=== PATIENT | female | born 1985 | race Caucasian/White ===

== ENCOUNTER 2022-01-17 08:54 | Inpatient (IN) | payer OTHER ==
[2022-01-17] MEDS ORDERED: SODIUM CHLORIDE 0.9% 500 ML INFUS.BAG IV ONE (09:43)
[2022-01-17] MEDS ORDERED: FAMOTIDINE 20 MG/50 ML IVPB 20 MG/50 ML MG IVPB ONE ×2 (09:50→10:26)
[2022-01-17] MEDS ORDERED: ACETAMINOPHEN 1000 MG/100 ML BAG IVPB ONE (09:50)
[2022-01-17] MEDS ORDERED: MAG HYDROX/AL HYDROX/SIMETH -MYLANTA- ORAL SUSPENSION PO ONE (09:50)
[2022-01-17] MEDS ORDERED: KETOROLAC TROMETHAMINE 15 MG/ML VIAL IVPUSH ONE (10:03)
[2022-01-17] MEDS ORDERED: KETOROLAC TROMETHAMINE 15 MG/ML VIAL ONE (10:25)
[2022-01-17] MEDS ORDERED: MAG HYDROX/AL HYDROX/SIMETH 30 ML UNIT-DOSE CUP ONE (10:25)
[2022-01-17 10:52] LABS: HEMATOCRIT 40.8 % (32.4-45.2); HEMOGLOBIN 13.3 GM/dL (10.7-15.3); MCH 28.6 pg (25.7-33.7); MCHC 32.7 g/dl (32.0-36.0); MEAN CELL VOLUME 87.5 fl (80-96); MEAN PLT VOLUME 7.5 fl (7.5-11.1); PLATELET COUNT 111 10^3/uL (134-434); RBC 4.67 M/mm3 (3.60-5.2); RDW 14.1 % (11.6-15.6)
[2022-01-17 11:04] LABS: INR 1.03 (0.83-1.09); PROTHROMBIN TIME (PATIENT) 11.8 SEC (9.7-13.0)
[2022-01-17 11:07] LABS: ACTIVATED PTT 25.3 SECONDS (25.2-36.5)
[2022-01-17 11:15] LABS: CHLORIDE 91 mmol/L (98-107); SODIUM 134 mmol/L (136-145)
[2022-01-17 11:17] LABS: CALCIUM 9.8 mg/dL (8.5-10.1)
[2022-01-17 11:18] LABS: ALBUMIN 4.9 g/dl (3.4-5.0); ANION GAP 26 MMOL/L (8-16); BLOOD UREA NITROGEN 8.9 mg/dL (7-18); CO2 17 mmol/L (21-32); GLUCOSE,RANDOM 154 mg/dL (74-106); MAGNESIUM 1.7 mg/dL (1.8-2.4)
[2022-01-17 11:21] LABS: CREATININE 0.9 mg/dL (0.55-1.3); SGOT/AST 165 U/L (15-37); SGPT/ALT 119 U/L (13-61)
[2022-01-17 11:22] LABS: TOT PROT 9.2 g/dl (6.4-8.2)
[2022-01-17 11:24] LABS: ALK PHOS 188 U/L (45-117)
[2022-01-17] MEDS ORDERED: MAGNESIUM OXIDE 400 MG TABLET (FP) PO ONE (11:34)
[2022-01-17] MEDS ORDERED: LACTATED RINGERS SOLUTION 1000 ML INFUS.BAG IV ONE ×2 (11:37→16:22)
[2022-01-17 12:02] LABS: ANISOCYTOSIS 0; HELMET CELLS 0; HOWELL-JOLLY BODIES 0; MACROCYTOSIS 0; OVALOCYTE 0; ROULEAU 0; SICKELED CELLS 0; TARGET CELLS 0; TEAR DROP CELLS 0; TOXIC GRANULATION 0
[2022-01-17] MEDS ORDERED: MAGNESIUM OXIDE 400 MG TABLET (FP) ONE ×2 (12:32→12:39)
[2022-01-17 12:36] LABS: LIPASE 3963 U/L (73-393)
[2022-01-17] MEDS ORDERED: PIPERACILLIN/TAZOB 4.5 GM 4.5 GM in DEXTROSE 5%-WATER 100 ML IVPB ONE (12:44)
[2022-01-17] MEDS ORDERED: PIPERACILLIN/TAZOB 3.375 GM 3.375 GM/50 ML BAG IVPB ONE (13:21)
[2022-01-17 15:22] LABS: EPI CELLS 23 /uL (0-25.1); HYALINE CASTS 2 /uL (0-3.1); URINE APPEARANCE CLEAR; URINE BACTERIA 193 /uL (0-1359); URINE BILIRUBIN 2+ (NEGATIVE); URINE COLOR DK YELLOW; URINE GLUCOSE (UA) NEGATIVE (NEGATIVE); URINE KETONE 4+ (NEGATIVE); URINE LEUK ESTERASE NEGATIVE (NEGATIVE); URINE NITRITE NEGATIVE (NEGATIVE); URINE PROTEIN 2+ (NEGATIVE); URINE RBC 82 /uL (0-23.9); URINE WBC 12 /uL (0-25.8)
[2022-01-17] MEDS ORDERED: PANTOPRAZOLE SODIUM 40 MG VIAL IVPUSH ONE (19:25)
[2022-01-17] MEDS ORDERED: PANTOPRAZOLE SODIUM 40 MG VIAL ONE (20:28)
[2022-01-17] MEDS ORDERED: SODIUM CHLORIDE 1,000 ML IV SCH (21:15)
[2022-01-17] MEDS ORDERED: KCL 10 MEQ IVPB 10 MEQ/100 ML INFUS.BAG IVPB SCH (21:15)
[2022-01-17] MEDS ORDERED: KCL 10 MEQ IVPB 10 MEQ/100 ML INFUS.BAG IVPB ONE (21:30)
[2022-01-18 00:29] VITALS: BMI 28.0
[2022-01-18] MEDS ORDERED: LACTATED RINGERS SOLUTION 1,000 ML/1,000 ML INFUS.BAG IV SCH ×3 (04:30→22:24)
[2022-01-18 06:33] LABS: OPIATES, URI NEGATIVE (NEGATIVE)
[2022-01-18 06:34] LABS: COCAINE, UR NEGATIVE (NEGATIVE); METHADONE, UR NEGATIVE (NEGATIVE); PHENCYCLIDINE,URINE NEGATIVE (NEGATIVE); URINE BENZODIAZEPINES NEGATIVE (NEGATIVE)
[2022-01-18 07:18] LABS: URINE AMPHETAMINES NEGATIVE (NEGATIVE)
[2022-01-18] MEDS ORDERED: PIPERACILLIN/TAZOB 4.5 GM 4.5 GM in DEXTROSE 5%-WATER 100 ML IVPB ONE ×3 (08:30→20:00)
[2022-01-18 08:59] LABS: URINE BARBITURATES NEGATIVE (NEGATIVE)
[2022-01-18] MEDS ORDERED: MAGNESIUM SULF 50% (8.12 MEQ/2 ML-1 GM VIAL) IVPB ONE (09:59)
[2022-01-18 10:15] LABS: BASO % 0.5 % (0-2.0); EOS % 2.5 % (0-4.5); HEMATOCRIT 34.8 % (32.4-45.2); HEMOGLOBIN 11.5 GM/dL (10.7-15.3); LYMPH % 15.3 % (8-40); MCH 29.1 pg (25.7-33.7); MCHC 33.2 g/dl (32.0-36.0); MEAN CELL VOLUME 87.8 fl (80-96); MEAN PLT VOLUME 7.9 fl (7.5-11.1); NEUT % 75.7 % (42.8-82.8); PLATELET COUNT 77 10^3/uL (134-434); RBC 3.96 M/mm3 (3.60-5.2); RDW 13.9 % (11.6-15.6); WHITE BLOOD COUNT 7.9 K/mm3 (4.0-10.0)
[2022-01-18 10:46] LABS: CHLORIDE 100 mmol/L (98-107); SODIUM 137 mmol/L (136-145)
[2022-01-18 10:51] LABS: ANION GAP 8 MMOL/L (8-16); CO2 29 mmol/L (21-32); MAGNESIUM 1.9 mg/dL (1.8-2.4)
[2022-01-18 10:52] LABS: BLOOD UREA NITROGEN 6.3 mg/dL (7-18); GLUCOSE,RANDOM 64 mg/dL (74-106)
[2022-01-18 10:54] LABS: CREATININE 0.5 mg/dL (0.55-1.3); SGOT/AST 114 U/L (15-37); SGPT/ALT 83 U/L (13-61)
[2022-01-18 10:55] LABS: CHOLESTEROL 193 mg/dL (50-200)
[2022-01-18 10:56] LABS: BILIRUBIN,DIRECT 0.7 mg/dL (0.0-0.2); TRIGLYCERIDES 59 mg/dL (0-150)
[2022-01-18 10:57] LABS: BILIRUBIN,TOTAL 1.7 mg/dL (0.2-1); LDL CHOLESTEROL (ONLY SJRH) 65 mg/dL (5-100)
[2022-01-18 10:58] LABS: HDL CHOLESTEROL 107 mg/dL (40-60)
[2022-01-18 11:00] LABS: ALBUMIN 3.5 g/dl (3.4-5.0); ALK PHOS 132 U/L (45-117); CALCIUM 8.3 mg/dL (8.5-10.1); PHOSPHOROUS 0.5 mg/dL (2.5-4.9); TOT PROT 6.6 g/dl (6.4-8.2)
[2022-01-18] MEDS ORDERED: POTASSIUM PHOSPHATE 30 MM in SODIUM CHLORIDE 500 ML IVPB ONE (13:32)
[2022-01-18 14:14] LABS: LIPASE 2025 U/L (73-393)
[2022-01-18] MEDS: PIPERACILLIN/TAZOB 4.5 GM 4.5 GM in DEXTROSE 5%-WATER 100 ML IVPB SCH ×2 (14:47→18:44)
[2022-01-18] MEDS: POTASSIUM PHOSPHATE 45 MM in SODIUM CHLORIDE 500 ML IVPB SCH (16:06)
[2022-01-18] MEDS ORDERED: hydrALAZINE HCL 10 MG TABLET PO ONE (22:23)
[2022-01-19] MEDS ORDERED: PIPERACILLIN/TAZOBACTAM 4.5 GM VIAL IVPB ONE (01:57)
[2022-01-19] MEDS ORDERED: PIPERACILLIN/TAZOB 4.5 GM 4.5 GM in DEXTROSE 5%-WATER 100 ML IVPB ONE (02:00)
[2022-01-19] MEDS: PIPERACILLIN/TAZOB 4.5 GM 4.5 GM in DEXTROSE 5%-WATER 100 ML IVPB SCH (02:20)
[2022-01-19 03:00] VITALS: RESP 20
[2022-01-19] MEDS: POTASSIUM PHOSPHATE 45 MM in SODIUM CHLORIDE 500 ML IVPB SCH (03:33)
[2022-01-19 07:29] VITALS: TEMP 98.6
[2022-01-19] MEDS ORDERED: amLODIPine BESYLATE 10 MG TABLET (FP) PO ONE (08:05)
[2022-01-19 09:14] VITALS: BP 166/95; PULSE 102
[2022-01-19 09:53] LABS: CHLORIDE 99 mmol/L (98-107); SODIUM 139 mmol/L (136-145)
[2022-01-19 09:58] LABS: ALBUMIN 3.8 g/dl (3.4-5.0); ANION GAP 13 MMOL/L (8-16); CALCIUM 8.4 mg/dL (8.5-10.1); CO2 27 mmol/L (21-32); GLUCOSE,RANDOM 81 mg/dL (74-106)
[2022-01-19 09:59] LABS: MAGNESIUM 1.4 mg/dL (1.8-2.4)
[2022-01-19 10:00] LABS: BILIRUBIN,DIRECT 0.7 mg/dL (0.0-0.2); CREATININE 0.4 mg/dL (0.55-1.3); PHOSPHOROUS 4.8 mg/dL (2.5-4.9); SGOT/AST 106 U/L (15-37); SGPT/ALT 86 U/L (13-61)
[2022-01-19 10:02] LABS: BILIRUBIN,TOTAL 1.4 mg/dL (0.2-1); TOT PROT 7.1 g/dl (6.4-8.2)
[2022-01-19 10:06] LABS: ALK PHOS 138 U/L (45-117)
[2022-01-19 10:08] LABS: BLOOD UREA NITROGEN 2.6 mg/dL (7-18)
[2022-01-19 10:15] LABS: BASO % 0.6 % (0-2.0); EOS % 1.2 % (0-4.5); HEMATOCRIT 34.9 % (32.4-45.2); HEMOGLOBIN 11.7 GM/dL (10.7-15.3); LYMPH % 15.4 % (8-40); MCH 29.5 pg (25.7-33.7); MCHC 33.5 g/dl (32.0-36.0); MONO % 6.6 % (3.8-10.2); NEUT % 76.2 % (42.8-82.8); PLATELET COUNT 108 10^3/uL (134-434); RBC 3.97 M/mm3 (3.60-5.2); RDW 13.7 % (11.6-15.6); WHITE BLOOD COUNT 5.9 K/mm3 (4.0-10.0)
== END 2022-01-19 09:10 | disposition left against medical advice (07) | DRG 440 ==
LOC: JER 08:54 → JERBED 18:34 → J8W 23:05
PROVIDERS: ADMIT Internal Medicine; ATTEND Internal Medicine
DX: K85.10 Biliary acute pancreatitis without necrosis or infection (principal); R74.01 Elevation of levels of liver transaminase levels; K76.0 Fatty (change of) liver, not elsewhere classified; E83.39 Other disorders of phosphorus metabolism; K80.20 Calculus of gallbladder without cholecystitis without obstruction; D69.6 Thrombocytopenia, unspecified; F41.9 Anxiety disorder, unspecified; D72.829 Elevated white blood cell count, unspecified
CPT/HCPCS: 0241U-QW; 36415; 74177-TC; 74181-TC; 76705-TC; 78226-TC; 80048; 80053; 80061; 80076; 80307; 81003; 82248; 82977; 83036; 83605; 83690; 83735; 84100; 84439; 84443; 84702; 85025; 85610; 85651; 85730; 86140; 86704; 86705; 86709; 87040; 87086; 87517; 87522; 93005; 93010; 99285-25; A9537